=== PATIENT | male | born 1975 | race Caucasian/White ===

== ENCOUNTER 2018-11-21 16:22 | Emergency (ER) | payer BC ==
[~2018-11-21] VITALS: Ht 190.5 cm; Wt 81.8 kg
[2018-11-21 18:11] VITALS: BP 125/78
== END 2018-11-21 18:11 | DRG 914 ==
LOC: ED 16:22
DX: S68.620A Partial traumatic transphalangeal amputation of right index finger, initial encounter (principal); W26.8XXA Contact with other sharp object(s), not elsewhere classified, initial encounter; Y93.89 Activity, other specified; Y92.39 Other specified sports and athletic area as the place of occurrence of the external cause; Y99.8 Other external cause status

== ENCOUNTER 2020-06-20 06:42 | Emergency (ER) | payer SELFPAY ==
[~2020-06-20] VITALS: Ht 154.9 cm; Wt 104.0 kg
[2020-06-20 07:59] LABS: HEMATOCRIT 46.9 % (39.0-50.0); HEMOGLOBIN 15.9 g/dl (14.0-18.0); IMMATURE GRANULOCYTES 1.5 % (0.0-5.0); MEAN CELL VOLUME 87.3 fL CALC (80.0-100.0); MEAN CORPUSCULAR HGB 29.6 pG CALC (26.0-32.0); MEAN CORPUSCULAR HGB CONC 33.9 g/dL CAL (32.0-36.0); NEUT# 5.78 thou/uL (1.82-7.42); RED BLOOD COUNT 5.37 mill/uL (4.70-6.10); RED CELL DISTRI WIDTH 11.6 % (11.5-15.5)
[2020-06-20 08:13] LABS: ALBUMIN 4.3 g/dL (3.2-5.0); ALKALINE PHOSPHATASE 157 u/l (38-126); ANION GAP 16 (6-22 (CALC)); BUN 13 mg/dL (9-20); BUN/CREATININE RATIO 14 (12-20 (CALC)); CARBON DIOXIDE 28 mmol/l (22-30); CHLORIDE 95 mmol/l (95-108); CREATININE 0.9 mg/dL (0.7-1.3); GFR > 60 ML/MIN (>=60 (CALC)); GFR FOR AFR.AMER. > 60 ML/MIN (>=60 (CALC)); LIPASE 73 u/l (23-300); POTASSIUM 4.4 mmol/l (3.5-5.1); SGOT/AST 64 u/l (17-59); SODIUM 134 mmol/l (137-146); TOTAL PROTEIN 7.7 g/dL (6.3-8.2)
[2020-06-20] MEDS ORDERED: ZITHROMAX Z-PA250 MG PO (10:45)
[2020-06-20 11:25] VITALS: BP 124/78
== END 2020-06-20 11:25 | disposition home or self-care (01) | DRG 373 ==
LOC: ED 06:42
PROVIDERS: Family Medicine
DX: A04.5 Campylobacter enteritis (principal); I10 Essential (primary) hypertension; F17.220 Nicotine dependence, chewing tobacco, uncomplicated; Z20.828 Contact with and (suspected) exposure to other viral communicable diseases

== ENCOUNTER 2022-11-19 14:09 | Emergency (ER) | payer SELFPAY ==
[~2022-11-19] VITALS: Ht 182.9 cm; Wt 104.3 kg
[~2022-11-19 14:09] MED LIST: ZITHROMAX Z-PA250 MG PO
[2022-11-19] MEDS ORDERED: NAPROXEN500 MG PO ×2 (16:20→16:26)
[2022-11-19] MEDS ORDERED: TRAMADOL HYDROC50 M1 PO ×2 (16:20→16:26)
[2022-11-19 16:31] VITALS: BP 148/74
== END 2022-11-19 16:48 | disposition home or self-care (01) | DRG 605 ==
LOC: ED 14:09
DX: S90.31XA Contusion of right foot, initial encounter (principal); I10 Essential (primary) hypertension; F17.220 Nicotine dependence, chewing tobacco, uncomplicated; W55.22XA Struck by cow, initial encounter